=== PATIENT | male | born 1985 | race Hispanic/Latino ===

== ENCOUNTER 2019-11-18 20:41 | Emergency (ER) | payer OTHER ==
[2019-11-18 22:05] LABS: BASOPHILS % (AUTO) 0.3 % (0.0-5.0); EOSINOPHILS % (AUTO) 4.6 % (0.0-8.0); HEMATOCRIT 44.2 % (42-54); LYMPHOCYTES % (AUTO) 35.8 % (21.0-51.0); MEAN CORPUSCULAR VOLUME 86.2 fL (79-99); NEUTROPHILS % (AUTO) 51.1 % (40.0-77.0); PLATELET COUNT (AUTO) 244 K/uL (130-400); RED BLOOD CELL COUNT(AUTO) 5.13 MIL/uL (4.50-6.20); RED CELL DISTRIBUTION WIDTH 11.8 % (11.0-15.5); WHITE BLOOD COUNT (AUTO) 5.9 K/uL (4.8-10.8)
[2019-11-18 22:17] LABS: CREATININE 1.1 mg/dL (0.5-1.5); POTASSIUM 3.9 mmol/L (3.5-5.1)
[2019-11-18 22:18] LABS: AMPHET/METH SCREEN,URINE NEGATIVE (NEGATIVE); BARBITURATE SCREEN, URINE NEGATIVE (NEGATIVE); BENZODIAZEPINES SCREEN,URINE NEGATIVE (NEGATIVE); CANNABINOID SCREEN,URINE NEGATIVE (NEGATIVE); COCAINE SCREEN,URINE NEGATIVE (NEGATIVE); OPIATE SCREEN,URINE NEGATIVE (NEGATIVE); PHENCYCLIDINE SCREEN,URINE NEGATIVE (NEGATIVE)
== END 2019-11-18 23:48 | disposition home or self-care (01) ==
LOC: EDH 20:41
DX: J20.9 Acute bronchitis, unspecified (principal); R20.2 Paresthesia of skin; D32.9 Benign neoplasm of meninges, unspecified
CPT/HCPCS: 36415; 70450; 71045; 80048; 80305; 85025; 93005

== ENCOUNTER → 2021-02-22 | Outpatient (CLI) | payer OTHER | END | disposition home or self-care (01) | LOC: RAH 11:24 | PROVIDERS: ATTEND Family Medicine | DX: G89.29 Other chronic pain (principal); R93.0 Abnormal findings on diagnostic imaging of skull and head, not elsewhere classified; R50.9 Fever, unspecified | CPT/HCPCS: 70544 ==

== ENCOUNTER → 2022-12-05 | Outpatient (CLI) | payer BC ==
[~2022-12-05] MED LIST: GADOTERATE MEGLUMINE 10 MMOL/20 ML VIAL IV ONE
== END | disposition home or self-care (01) ==
LOC: RAH 14:00
PROVIDERS: ATTEND Family Medicine
DX: R20.2 Paresthesia of skin (principal); M79.605 Pain in left leg; M79.604 Pain in right leg
CPT/HCPCS: 72157; A9575